=== PATIENT | female | born 1995 | race Caucasian/White ===

== ENCOUNTER 2017-12-16 05:48 | Emergency (ER) | payer OTHER ==
[2017-12-16] MEDS ORDERED: ONDANSETRON DISINTEGRATING 4 MG TAB ONE (05:52)
[2017-12-16] MEDS ORDERED: ONDANSETRON 4 MG/2 ML VIAL IVP ONE (06:00)
[2017-12-16] MEDS ORDERED: NS 1,000 ML IV ONE ×2 (06:00→07:04)
[2017-12-16] MEDS ORDERED: FAMOTIDINE 20 MG/NACL 50 ML IV ONE (06:30)
--- NOTE | 2017-12-16 06:33 | EDPHY ---
H & P Stated Complaint: N/V/D since 1300 yesterday Time Seen by Provider: 12/16/17 05:59 HPI/ROS: HPI The patient presents with nausea, vomiting, diarrhea that began at about midnight last night. Symptoms started slowly and have gotten progressively worse. She has had multiple episodes of nonbloody nonbilious emesis. This is associated with frequent diarrhea. She has been unable to sleep for more than 45 min at a time because of her symptoms. She has diffuse abdominal cramping which is moderate in severity. As she did eat sushi at about noon yesterday for lunch. She was able to eat some dinner. She does not have a fever. 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 She has no prior history of similar illness.. REVIEW OF SYSTEMS Constitutional: No fever, no chills. Eyes: No discharge. ENT: No sore throat. Cardiovascular: No chest pain, no palpitations. Respiratory: No cough, no shortness of breath. Gastrointestinal: See HPI Genitourinary: No hematuria. Musculoskeletal: No back pain. Skin: No rashes. Neurological: No headache. PMHx: Asthma Soc Hx: Here with a friend PHYSICAL General Appearance: Alert, no distress Eyes: Pupils equal and round no pallor or injection ENT, Mouth: Mucous membranes dry Respiratory: There are no retractions, lungs are clear to auscultation Cardiovascular: Regular rate and rhythm Gastrointestinal: Abdomen is soft and non-tender, no masses, bowel sounds normal Neurological: A&O, moves all extremities Skin: Warm and dry, no rashes Musculoskeletal: Neck is supple non tender Extremities: symmetrical, full range of motion Psychiatric: Patient is oriented X 3, there is no agitation Source: Patient Exam Limitations: No limitations - Personal History LMP (Females 10-55): 22-28 Days Ago Current Tetanus/Diphtheria Vaccine: Yes Current Tetanus Diphtheria and Acellular Pertussis (TDAP): Yes - Medical/Surgical History Hx Asthma: Yes Hx Chronic Respiratory Disease: No Hx Diabetes: No Hx Cardiac Disease: No Hx Renal Disease: No Hx Cirrhosis: No Hx Alcoholism: No Hx HIV/AIDS: No Hx Splenectomy or Spleen Trauma: No Other PMH: Asthma, endometreosis, ovarian cysts - Social History Smoking Status: Never smoked Constitutional: Initial Vital Signs Temperature (C) 36.4 C 12/16/17 05:51 Heart Rate 90 12/16/17 05:51 Respiratory Rate 18 12/16/17 05:51 Blood Pressure 105/84 H 12/16/17 05:51 O2 Sat (%) 99 12/16/17 05:51 O2 Delivery Mode Room Air Allergies/Adverse Reactions: No Known Allergies Allergy (Unverified 12/16/17 05:55) Home Medications: Medication Instructions Recorded Ondansetron Odt [Zofran Odt 4 mg 4 mg PO Q4 PRN #10 tab 12/16/17 (*)] Medical Decision Making Differential Diagnosis: This is a 22-year-old female who presents with about 6 hr of nausea, vomiting, diarrhea, abdominal cramping. On exam, she is generally well-appearing with normal vital signs, mucous membranes are dry and she does have signs of mild to moderate dehydration. Her abdominal exam is benign though she is complaining of abdominal pain. Differential diagnosis includes viral gastroenteritis, toxin mediated enterocolitis, less likely appendicitis. In the emergency department, patient was given 2 L of IV fluid, antiemetics, famotidine. This caused improvement in her symptoms. Labs revealed leukocytosis and small anion gap which I attribute to dehydration. On reassessment, the patient was feeling much better. I anticipate she will be able to discharged from the emergency department after she finishes her 2nd L of fluid. She is happy with this plan. - Data Points Laboratory Results: Laboratory Results 12/16/17 06:16 12/16/17 06:16 12/16/17 12/16/17 06:16 06:16 WBC 15.51 10^3/uL H 10^3/uL (3.80-9.50) RBC 5.17 10^6/uL 10^6/uL (4.18-5.33) Hgb 16.4 g/dL H g/dL (12.6-16.3) Hct 44.1 % % (38.0-47.0) MCV 85.3 fL fL (81.5-99.8) MCH 31.7 pg pg (27.9-34.1) MCHC 37.2 g/dL H g/dL (32.4-36.7) RDW 12.3 % % (11.5-15.2) Plt Count 264 10^3/uL 10^3/uL (150-400) MPV 9.4 fL fL (8.7-11.7) Neut % (Auto) Pending Lymph % (Auto) Pending [place] % (Auto) Pending Eos % (Auto) Pending Baso % (Auto) Pending Nucleat RBC Rel Count Pending Absolute Neuts (auto) Pending Absolute Lymphs (auto) Pending Absolute Monos (auto) Pending Absolute Eos (auto) Pending Absolute Basos (auto) Pending Absolute Nucleated RBC Pending Immature Gran % Pending Immature Gran # Pending Platelet Estimate Pending Sodium 145 mEq/L mEq/L (135-145) Potassium 4.2 mEq/L mEq/L (3.3-5.0) Chloride 107 mEq/L mEq/L (97-110) Carbon Dioxide 20 mEq/l L mEq/l (22-31) Anion Gap 18 mEq/L H mEq/L (8-16) BUN 18 mg/dL mg/dL (7-23) Creatinine 0.7 mg/dL mg/dL (0.6-1.0) Estimated GFR > 60 Glucose 99 mg/dL mg/dL (70-100) Calcium 10.2 mg/dL mg/dL (8.5-10.4) Medications Given: Discontinued Medications Sodium Chloride (Ns) 1,000 mls @ 0 mls/hr IV EDNOW ONE; Wide Open PRN Reason: Protocol Stop: 12/16/17 06:01 Last Admin: 12/16/17 06:12 Dose: 1,000 mls Sodium Chloride (Ns) 1,000 mls @ 0 mls/hr IV EDNOW ONE; Wide Open PRN Reason: Protocol Stop: 12/16/17 06:31 Last Admin: 12/16/17 06:43 Dose: 1,000 mls Famotidine/Sodium Chloride (Pepcid 20 Mg (Premix)) 50 mls @ 200 mls/hr IV EDNOW ONE Stop: 12/16/17 06:44 Last Admin: 12/16/17 06:41 Dose: 50 mls Sodium Chloride (Ns) 1,000 mls @ 0 mls/hr IV ONCE ONE; Wide Open PRN Reason: Protocol Stop: 12/16/17 07:05 Last Admin: 12/16/17 07:06 Dose: 1,000 mls Ondansetron HCl (Zofran) 4 mg IVP EDNOW ONE Stop: 12/16/17 06:01 Last Admin: 12/16/17 06:16 Dose: 4 mg Departure - Departure Disposition: Home, Routine, Self-Care Clinical Impression: Nausea & vomiting Qualifiers: Vomiting type: unspecified Vomiting Intractability: non-intractable Qualified Code(s): R11.2 - Nausea with vomiting, unspecified Diarrhea Qualifiers: Diarrhea type: unspecified type Qualified Code(s): R19.7 - Diarrhea, unspecified Condition: Good Instructions: Ondansetron (By mouth), Acute Nausea and Vomiting (ED) Additional Instructions: Please try drinking sips of clear fluids until your feeling better. Then you can try crackers or other bland food. Please return to the emergency department if you are worse in any way. Referrals: Anna Montoya MD [[facility] [place] Primary Care Provider] - As per Instructions Prescriptions: Ondansetron Odt [Zofran Odt 4 mg (*)] 4 mg PO Q4 PRN #10 tab PRN Reason: Nausea/Vomiting, Can'T Take Po
[2017-12-16] MEDS ORDERED: ONDANSETRON 4MG PREPACK#2 BTL TAKEHOME ONE (06:35)
[2017-12-16 06:38] LABS: PLATELET COUNT 264 10^3/uL (150-400)
[2017-12-16] MEDS: NS 1,000 ML IV ONE ×2 (06:43→07:15)
[2017-12-16 08:07] VITALS: BP 121/61
== END 2017-12-16 08:05 | disposition home or self-care (01) ==
DX: R11.2 Nausea with vomiting, unspecified (principal); R19.7 Diarrhea, unspecified; J45.909 Unspecified asthma, uncomplicated; E86.9 Volume depletion, unspecified
CPT/HCPCS: 96374; J2405